=== PATIENT | male | born 1950 | race Caucasian/White ===

== ENCOUNTER 2017-10-17 12:33 | Inpatient (IN) | payer OTHER, MEDICAID ==
[~2017-10-17] VITALS: Ht 157.5 cm; Wt 69.1 kg
[2017-10-17] MEDS ORDERED: ASPIRIN 81MG TABLET PO STA (14:53)
[2017-10-17] MEDS ORDERED: FUROSEMIDE 40MG/4ML VIAL IV STA (14:53)
[2017-10-17] MEDS ORDERED: NITROGLYCERIN OINT 1GM/INCH UDPKT TD STA (14:53)
[2017-10-17 15:05] LABS: BASOPHILS % 0.4 % (0.0-2.0); EOSINOPHILS % 0.4 % (0.0-5.0); HEMATOCRIT. 31.8 % (42.0-52.0); HEMOGLOBIN. 10.8 g/dL (14.0-18.0); LYMPHOCYTES % 25.6 % (20.0-50.0); MEAN CORPUSCULAR HEMOGLOBIN 31.7 pg (28.0-32.0); MEAN PLATELET VOLUME 8.2 fl (7.4-10.4); MONOCYTES % 12.8 % (2.0-8.0); NEUTROPHILS % 60.8 % (40.0-76.0); PLATELET 190 x1000/uL (130-400); RED BLOOD CELL COUNT 3.42 mill/uL (4.7-6.1); RED CELL DISTRIBUTION WIDTH 13.2 % (11.6-14.6)
[2017-10-17 15:10] LABS: INR 1.1; PROTHROMBIN TIME 11.6 sec (9.4-11.6)
[2017-10-17 15:15] LABS: CHLORIDE 106 mEq/L (98-107)
[2017-10-17] MEDS ORDERED: HYDROCODONE/ACETAMINOPHEN 10/325MG TABLET PO PRN (18:00)
[2017-10-17] MEDS ORDERED: ACETAMINOPHEN 325MG TABLET PO PRN (18:00)
[2017-10-17] MEDS ORDERED: GUAIFENESIN 200MG/10ML SUGAR FREE UDC PO PRN (18:00)
[2017-10-17] MEDS ORDERED: CLONIDINE 0.1MG TABLET PO PRN (18:00)
[2017-10-17] MEDS ORDERED: DIPHENHYDRAMINE 50MG/ML VIAL IV PRN (18:00)
[2017-10-17] MEDS ORDERED: IPRATROPIUM/ALBUTEROL 0.5-3(2.5)MG/3ML NEB INH PRN (18:00)
[2017-10-17] MEDS ORDERED: NA PHOS,M-B/NA PHOS,DI-BA ENEMA 118ML PR PRN (18:00)
[2017-10-17] MEDS ORDERED: ONDANSETRON HCL 4MG/2ML VIAL IV PRN (18:00)
[2017-10-17] MEDS ORDERED: MAGNESIUM/ALUMINUM HYDROXIDE/SIMETHICONE 30ML UDC PO PRN (18:00)
[2017-10-17] MEDS ORDERED: ACETAMINOPHEN 650MG/20.3ML UDC GT PRN (18:00)
[2017-10-17] MEDS ORDERED: HYDROCODONE/ACETAMINOPHEN 5/325MG TABLET PO PRN (18:00)
[2017-10-17] MEDS ORDERED: ACETAMINOPHEN 650MG SUPP PR PRN (18:00)
[2017-10-17 18:20] VITALS: BP 133/87
[2017-10-17 20:00] VITALS: BP 126/89
[2017-10-17] MEDS: ENOXAPARIN 40MG/0.4ML SYR SUBCUT SCH (22:17)
[2017-10-17] MEDS: SODIUM CHLORIDE 0.9% INJ 3ML FLUSH IVF SCH (22:17)
[2017-10-18] VITALS: BP 120/73
[2017-10-18 00:31] LABS: CLARITY URINE CLEAR (CLEAR); COLOR URINE YELLOW (YELLOW); KETONES URINE NEGATIVE (NEGATIVE); LEUKOCYTE ESTERASE URINE NEGATIVE (NEGATIVE); NITRITE URINE NEGATIVE (NEGATIVE); OCCULT BLOOD URINE NEGATIVE (NEGATIVE); PROTEIN URINE 1+ (NEGATIVE); SPECIFIC GRAVITY URINE 1.011 (1.005-1.030)
[2017-10-18 00:53] LABS: *AMPHETAMINES SCREEN URINE NEGATIVE (NEGATIVE); *BARBITURATES SCREEN URINE NEGATIVE (NEGATIVE); *BENZODIAZEPINES SCREEN URINE NEGATIVE (NEGATIVE); *COCAINE SCREEN URINE NEGATIVE (NEGATIVE); CANNABINOID URINE SCREEN NEGATIVE (NEGATIVE); METHADONE URINE SCREEN NEGATIVE (NEGATIVE); OPIATES URINE SCREEN NEGATIVE (NEGATIVE); PHENCYCLIDINE URINE SCREEN NEGATIVE (NEGATIVE)
[2017-10-18 04:00] VITALS: BP 122/68
[2017-10-18] MEDS: SODIUM CHLORIDE 0.9% INJ 3ML FLUSH IVF SCH ×3 (06:38→20:28)
[2017-10-18] MEDS: DOCUSATE SODIUM 100MG CAPSULE PO PRN (06:40)
[2017-10-18 06:43] LABS: BASOPHILS % 0.4 % (0.0-2.0); EOSINOPHILS % 0.8 % (0.0-5.0); HEMATOCRIT. 27.1 % (42.0-52.0); HEMOGLOBIN. 9.1 g/dL (14.0-18.0); LYMPHOCYTES % 22.9 % (20.0-50.0); MEAN CORPUSCULAR HEMOGLOBIN 31.4 pg (28.0-32.0); MEAN CORPUSCULAR VOLUME 93.3 fL (80.0-94.0); MEAN PLATELET VOLUME 8.3 fl (7.4-10.4); MONOCYTES % 12.7 % (2.0-8.0); NEUTROPHILS % 63.2 % (40.0-76.0); PLATELET 156 x1000/uL (130-400)
[2017-10-18] MEDS ORDERED: DEXTROSE 50% WATER 50ML SYRINGE IV PRN (07:15)
[2017-10-18 07:34] LABS: CHLORIDE 108 mEq/L (98-107)
[2017-10-18] MEDS: BLOOD SUGAR DIAGNOSTIC STRIP TEST SCH ×4 (07:40→20:21)
[2017-10-18 07:57] LABS: CREATINE KINASE 98 IU/L (39-308); HDL CHOLESTEROL 41 mg/dL (40-59); LDL CHOLESTEROL 50 mg/dL (5-100)
[2017-10-18 08:00] VITALS: BP 120/70
[2017-10-18] MEDS: INSULIN LISPRO 100 UNITS/ML SUBCUT SCH ×5 (08:10→20:29)
[2017-10-18] MEDS: FUROSEMIDE 40MG/4ML VIAL IV SCH (08:57)
[2017-10-18] MEDS: IPRATROPIUM/ALBUTEROL 0.5-3(2.5)MG/3ML NEB HHN SCH ×2 (09:20→20:13)
[2017-10-18] MEDS ORDERED: LISI-604 PO (11:50)
[2017-10-18] MEDS ORDERED: ASPI-1159 PO (11:50)
[2017-10-18] MEDS ORDERED: FURO-152 PO (11:50)
[2017-10-18] MEDS ORDERED: AMLO10TA4 PO (11:50)
[2017-10-18] MEDS ORDERED: ATOR10TA69 PO (11:50)
[2017-10-18 11:59] LABS: BG BASE EXCESS 2.7 mmol/L (-2.0-2.0); BG CARBOXYHEMOGLOBIN 0.3 % (0.5-1.5); BG DEOXYHEMOGLOBIN 13.7 % (0.0-5.0); BG FRACTION INSPIRED OXYGEN 21; BG HCO3 ACT 26.4 mmol/L (22.0-26.0); BG METHEMOGLOBIN 0.3 % (0.0-1.5); BG OXYGEN SATURATION 86.2 % (92.0-98.5); BG OXYHEMOGLOBIN 85.7 % (94.0-97.0); BG PCO2 36.7 mmHg (35.0-45.0); BG PH 7.474 (7.350-7.450); BG PO2 51.8 mmHg (75.0-100.0); BG SAMPLE SITE RIGHT RADIAL; BG TOTAL HEMOGLOBIN 10.1 g/dL (12.0-18.0); BG VENT MODE ROOM AIR
[2017-10-18 12:00] VITALS: BP 128/75
[2017-10-18] MEDS ORDERED: REGADENOSON 0.4 MG/5 ML IV ONE (14:15)
[2017-10-18 16:00] VITALS: BP 119/65
[2017-10-18] MEDS: CLOPIDOGREL 75MG TABLET PO SCH (16:35)
[2017-10-18] MEDS: ASPIRIN 81MG TABLET PO SCH (16:35)
[2017-10-18 17:37] LABS: T4 FREE 1.14 ng/dL (0.76-1.46)
[2017-10-18 20:00] VITALS: BP 120/66
[2017-10-18] MEDS: CARVEDILOL 3.125 MG TABLET PO SCH (20:20)
[2017-10-18] MEDS: ENOXAPARIN 40MG/0.4ML SYR SUBCUT SCH (20:21)
[2017-10-18 23:30] LABS: CREATINE KINASE MB FRACTION 0.9 ng/mL (0.5-3.6)
[2017-10-19] VITALS: BP 129/81
[2017-10-19] MEDS: IPRATROPIUM/ALBUTEROL 0.5-3(2.5)MG/3ML NEB HHN SCH ×4 (02:04→20:33)
[2017-10-19 04:00] VITALS: BP 108/58
[2017-10-19] MEDS: SODIUM CHLORIDE 0.9% INJ 3ML FLUSH IVF SCH ×3 (05:59→21:11)
[2017-10-19] MEDS: BLOOD SUGAR DIAGNOSTIC STRIP TEST SCH ×4 (05:59→21:11)
[2017-10-19] MEDS: INSULIN LISPRO 100 UNITS/ML SUBCUT SCH ×4 (07:55→21:00)
[2017-10-19 08:00] VITALS: BP 121/68
[2017-10-19 08:22] LABS: BASOPHILS % 0.6 % (0.0-2.0); EOSINOPHILS % 2.3 % (0.0-5.0); HEMATOCRIT. 28.7 % (42.0-52.0); HEMOGLOBIN. 9.5 g/dL (14.0-18.0); MEAN CORPUSCULAR HEMOGLOBIN 31.3 pg (28.0-32.0); MEAN CORPUSCULAR VOLUME 94.1 fL (80.0-94.0); MEAN PLATELET VOLUME 8.2 fl (7.4-10.4); MONOCYTES % 12.9 % (2.0-8.0); NEUTROPHILS % 53.2 % (40.0-76.0); PLATELET 168 x1000/uL (130-400); RED BLOOD CELL COUNT 3.05 mill/uL (4.7-6.1); RED CELL DISTRIBUTION WIDTH 13.1 % (11.6-14.6)
[2017-10-19] MEDS ORDERED: LOSARTAN POTASSIUM 25 MG TABLET PO SCH (09:00)
[2017-10-19] MEDS ORDERED: REGADENOSON 0.4 MG/5 ML IV ONE (09:20)
[2017-10-19 09:26] LABS: CHLORIDE 111 mEq/L (98-107)
[2017-10-19 12:00] VITALS: BP 118/70
[2017-10-19] MEDS: ASPIRIN 81MG TABLET PO SCH (12:54)
[2017-10-19] MEDS: CLOPIDOGREL 75MG TABLET PO SCH (12:54)
[2017-10-19] MEDS: CARVEDILOL 3.125 MG TABLET PO SCH ×2 (12:54→21:10)
[2017-10-19] MEDS: FUROSEMIDE 40MG/4ML VIAL IV SCH (12:55)
[2017-10-19 16:00] VITALS: BP 150/74
[2017-10-19 16:34] LABS: CREATINE KINASE MB FRACTION 1.1 ng/mL (0.5-3.6)
[2017-10-19 20:00] VITALS: BP 124/75
[2017-10-19] MEDS: ENOXAPARIN 40MG/0.4ML SYR SUBCUT SCH (21:11)
[2017-10-20] VITALS (7 sets, daily range): BP systolic 118–138; BP diastolic 62–80
[2017-10-20] MEDS: IPRATROPIUM/ALBUTEROL 0.5-3(2.5)MG/3ML NEB HHN SCH ×3 (02:04→14:45)
[2017-10-20] MEDS: BLOOD SUGAR DIAGNOSTIC STRIP TEST SCH (05:37)
[2017-10-20] MEDS: SODIUM CHLORIDE 0.9% INJ 3ML FLUSH IVF SCH (05:37)
[2017-10-20] MEDS: INSULIN LISPRO 100 UNITS/ML SUBCUT SCH ×2 (08:10→12:38)
[2017-10-20] MEDS: FUROSEMIDE 40MG/4ML VIAL IV SCH (09:39)
[2017-10-20] MEDS: ASPIRIN 81MG TABLET PO SCH (09:39)
[2017-10-20] MEDS: CLOPIDOGREL 75MG TABLET PO SCH (09:39)
[2017-10-20] MEDS: DOCUSATE SODIUM 100MG CAPSULE PO PRN (09:39)
[2017-10-20] MEDS: CARVEDILOL 3.125 MG TABLET PO SCH (09:40)
[2017-10-20 10:25] LABS: BG BASE EXCESS -2.6 mmol/L (-2.0-2.0); BG CARBOXYHEMOGLOBIN 0.2 % (0.5-1.5); BG DEOXYHEMOGLOBIN 10.3 % (0.0-5.0); BG METHEMOGLOBIN 0.3 % (0.0-1.5); BG OXYGEN SATURATION 89.6 % (92.0-98.5); BG OXYHEMOGLOBIN 89.2 % (94.0-97.0); BG PCO2 32.4 mmHg (35.0-45.0); BG PH 7.429 (7.350-7.450); BG PO2 61.7 mmHg (75.0-100.0); BG SAMPLE SITE RIGHT RADIAL; BG TOTAL HEMOGLOBIN 11.4 g/dL (12.0-18.0); BG VENT MODE ROOM AIR
[2017-10-20 12:33] LABS: HEMATOCRIT 30.9 % (42.0-52.0); HEMOGLOBIN 10.4 g/dL (14.0-18.0); MEAN CORPUSCULAR HEMOGLOBIN 31.1 pg (28.0-32.0); MEAN CORPUSCULAR VOLUME 92.4 fL (80.0-94.0); PLATELET 201 x1000/uL (130-400); RED BLOOD CELL COUNT 3.34 mill/uL (4.7-6.1); RED CELL DISTRIBUTION WIDTH 13.2 % (11.6-14.6)
[2017-10-20 12:50] LABS: CHLORIDE 108 mEq/L (98-107)
[2017-10-20] MEDS ORDERED: LIDOCAINE HCL/PF 1% 2ML VIAL ONE (13:21)
== END 2017-10-20 19:55 | disposition home or self-care (01) | DRG 291 ==
LOC: ER 14:42 → 7WST 16:39 → EDBEDREQ 16:42 → EDBEDREQTM 16:42 → ENRESERV 16:49
PROVIDERS: ADMIT Family Medicine; ATTEND Family Medicine
DX: I13.0 Hypertensive heart and chronic kidney disease with heart failure and stage 1 through stage 4 chronic kidney disease, or unspecified chronic kidney disease (principal); I50.23 Acute on chronic systolic (congestive) heart failure; J96.01 Acute respiratory failure with hypoxia; N17.9 Acute kidney failure, unspecified; E11.22 Type 2 diabetes mellitus with diabetic chronic kidney disease; D64.9 Anemia, unspecified; E78.00 Pure hypercholesterolemia, unspecified; I25.119 Atherosclerotic heart disease of native coronary artery with unspecified angina pectoris; I27.20 Pulmonary hypertension, unspecified; I42.9 Cardiomyopathy, unspecified; J44.9 Chronic obstructive pulmonary disease, unspecified; N18.9 Chronic kidney disease, unspecified; R79.1 Abnormal coagulation profile; Z79.82 Long term (current) use of aspirin; Z79.899 Other long term (current) drug therapy; Z83.3 Family history of diabetes mellitus
CPT/HCPCS: 36415; 36600; 71045; 78452; 78582; 80048; 80053; 80061; 80305; 81003; 82375; 82550; 82553; 82805; 82962; 83036; 83880; 84439; 84443; 84484; 85025; 85027; 85379; 85610; 85730; 93005; 93017; 93306; 93970; 94640; 96374; 97162; 99285; A9500; A9558; J1650; J1815; J1940; J2785; J3490; J7620